=== PATIENT | female | born 1995 | race Asian ===

== ENCOUNTER → 2021-05-07 | Outpatient (CLI) | payer SELFPAY ==
--- NOTE | 2021-05-07 17:00 | Diagnostic Imaging Report ---
INDICATION: Cough and shortness of breath EXAMINATION: Frontal chest was obtained at 4:57 p.m. Heart and mediastinal silhouette are normal in appearance. The lungs are clear. There is no pneumothorax or pleural fluid. IMPRESSION: Negative chest. Dictated by: Dictated on workstation # [id number]
== END ==
LOC: RAD 16:21
PROVIDERS: ATTEND Nurse Practitioner Family
DX: Z11.1 Encounter for screening for respiratory tuberculosis (principal); R05.9 Cough, unspecified; R06.02 Shortness of breath
CPT/HCPCS: 71045